=== PATIENT | female | born 1995 | race African-American/Black ===

== ENCOUNTER 2018-10-24 18:02 | Emergency (ER) | payer BC, OTHER ==
[~2018-10-24] VITALS: Ht 167.6 cm; Wt 81.7 kg
[2018-10-24 20:53] LABS: URINE BILIRUBIN NEGATIVE (Negative); URINE BLOOD 1+ (Negative); URINE CLARITY CLEAR; URINE COLOR YELLOW; URINE GLUCOSE-RANDOM* NEGATIVE (Negative); URINE KETONES NEGATIVE (Negative); URINE LEUKOCYTES-REFLEX TRACE (Negative); URINE NITRITE-REFLEX NEGATIVE (Negative); URINE PROTEIN (DIPSTICK) NEGATIVE (Negative); URINE SPECIFIC GRAVITY 1.025 (1.005-1.035); URINE UROBILINOGEN 0.2 E.U./dl (0.2-1.0)
[2018-10-24 21:05] LABS: BACTERIA-REFLEX 1-9 Few /HPF (None Seen); CASTS None Seen /LPF (None Seen); CRYSTALS None Seen /LPF (None Seen); MUCUS 4-6 Moderate strn/LPF (None Seen); SQUAMOUS >10 Many /LPF (0-3); URINE RBC 3-10 Few /HPF (0-2)
[2018-10-24] MEDS ORDERED: KEFLEX500 M1 PO (21:11)
[2018-10-24 21:24] VITALS: BP 134/66
== END 2018-10-24 21:24 | disposition home or self-care (01) ==
LOC: ER 18:02
PROVIDERS: Physician Assistant
DX: N39.0 Urinary tract infection, site not specified (principal)